=== PATIENT | female | born 1975 | race Caucasian/White ===

== ENCOUNTER 2018-02-25 16:29 | Emergency (ER) | payer BC, OTHER ==
[2018-02-25 16:34] VITALS: BP 111/51; PULSE 70; TEMP 98.3; BMI 25.6
--- NOTE | 2018-02-25 16:55 | PDOC ---
History of Present Illness - General Chief Complaint: Foreign Body (FB) Stated Complaint: SOMETHING IS STUCK IN MY THROAT Time Seen by Provider: 02/25/18 16:32 - History of Present Illness Initial Comments: 02/25/18 16:49 Patient is a 42F, with no significant PMHx, who presents today with sensation that a fish bone is stuck in her throat. Patient states that she was eating fish about 20 minutes prior to arrival when she swallowed a tiny bone which subsequently became stuck in her throat. She states that it feels like it is deep in her throat, just above her stomach. She states that she drank some water to help flush it down but with no success. Pt was driving at time and came straight to ED. She denies any pain but has an uncomfortable sensation. Pt denies difficulty breathing, denies difficulty swallowing her secretions. Past History - Past Medical History Allergies/Adverse Reactions: Allergies Allergy/AdvReac Type Severity Reaction Status Date / Time No Known Allergies Allergy Verified 02/25/18 16:30 Home Medications: Ambulatory Orders Bupropion HCl [Wellbutrin Xl] 300 mg PO DAILY 02/25/18 Ranitidine HCl [Zantac] 0 mg PO DAILY 02/25/18 CVA: No COPD: No - Suicide/Smoking/Psychosocial Hx Smoking History: Current every day smoker Have you smoked in the past 12 months: Yes Number of Cigarettes Smoked Daily: 10 Information on smoking cessation initiated: Yes 'Breaking Loose' booklet given: 02/25/18 Hx Alcohol Use: No Drug/Substance Use Hx: No Substance Use Type: None Review of Systems - Review of Systems Comments:: 02/25/18 16:51 """GENERAL/CONSTITUTIONAL: No fever or chills. No weakness. HEAD, EYES, EARS, NOSE AND THROAT: No change in vision. No ear pain or discharge. No sore throat. + foreign body sensation in throat CARDIOVASCULAR: No chest pain or shortness of breath. RESPIRATORY: No cough, wheezing, or hemoptysis. GASTROINTESTINAL: No nausea, vomiting, diarrhea or constipation. GENITOURINARY: No dysuria, frequency, or change in urination. MUSCULOSKELETAL: No joint or muscle swelling or pain. No neck or back pain. SKIN: No rash NEUROLOGIC: No headache, vertigo, loss of consciousness, or change in strength/ sensation. ENDOCRINE: No increased thirst. No abnormal weight change. HEMATOLOGIC/LYMPHATIC: No anemia, easy bleeding, or history of blood clots. ALLERGIC/IMMUNOLOGIC: No hives or skin allergy. """ *Physical Exam - Vital Signs Last Vital Signs Temp Pulse Resp BP Pulse Ox 98.3 F 70 18 111/51 100 02/25/18 16:29 02/25/18 16:29 02/25/18 16:29 02/25/18 16:29 02/25/18 16:29 - Physical Exam Comments: 02/25/18 16:52 "GENERAL: Awake, alert, and fully oriented, in no acute distress. HEAD: No signs of trauma EYES: PERRLA, EOMI, sclera anicteric, conjunctiva clear ENT: Auricles normal inspection, hearing grossly normal, nares patent, oropharynx clear without exudates. Moist mucosa NECK: Nontender, no stepoffs, Normal ROM, supple, no lymphadenopathy, JVD, or masses LUNGS: Breath sounds equal, clear to auscultation bilaterally. No wheezes, and no crackles HEART: Regular rate and rhythm, normal S1 and S2, no murmurs, rubs or gallops ABDOMEN: Soft, nontender, normoactive bowel sounds. No guarding, no rebound. No masses EXTREMITIES: Normal range of motion, no edema. No clubbing or cyanosis. No cords, erythema, or tenderness NEUROLOGICAL: Cranial nerves II through XII intact. 5/5 strength and sensation in all extremities, Normal speech, normal gait, normal cerebellar function SKIN: Warm, Dry, normal turgor, no rashes or lesions noted. Medical Decision Making - Medical Decision Making 02/25/18 16:52 42 F with FB sensation in throat after swallowing fish bone. Pt did not attempt to eat anything but drank some water prior to arrival to ED. - Pt was given apple sauce and fruit cup in ED, with subsequent passage of foreign body Pt now reports complete resolution of FB sensation. Able to swallow comfortably. Denies any pain in her throat or chest. Pt is well appearing, with normal vitals. Clinically stable for DC at this time. I discussed the physical exam findings, ancillary test results and final diagnoses with the patient. I answered all of the patient's questions. The patient was satisfied with the care received and felt comfortable with the discharge plan and treatment plan. The patient agrees to follow up with the primary care physician within 24-72 hours. *DC/Admit/Observation/Transfer Diagnosis at time of Disposition: Swallowed foreign body - Discharge Dispostion Disposition: HOME Condition at time of disposition: Stable - Referrals Referrals: Richard Youngblood MD [Staff Physician] - - Patient Instructions Printed Discharge Instructions: DI for Foreign Body, Swallowed-Adult Additional Instructions: Follow up with a GI doctor for further evaluation of your esophagus. You may have a stricture that caused the food to get caught in your throat. If you experience any chest pain, throat pain, fevers, or any other concerning symptoms, return to the ER immediately. - Post Discharge Activity - Attestations Physician Attestion: 02/25/18 16:55 I, Dr. Reyes Moreland MD, attest that this document has been prepared under my direction and personally reviewed by me in its entirety. I further attest, that it accurately reflects all work, treatment, procedures and medical decision -making performed by me.
== END 2018-02-25 16:58 | disposition home or self-care (01) ==
LOC: FER 16:29
DX: T18.9XXA Foreign body of alimentary tract, part unspecified, initial encounter (principal); X58.XXXA Exposure to other specified factors, initial encounter; Y93.89 Activity, other specified; Y92.9 Unspecified place or not applicable; F17.210 Nicotine dependence, cigarettes, uncomplicated
CPT/HCPCS: 99281-25